=== PATIENT | female | born 1980 | race Caucasian/White ===

== ENCOUNTER 2020-05-11 14:27 | Outpatient (REF) | payer OTHER, SELFPAY ==
[2020-05-12 17:38] LABS: C. trachomatis RNA TMA NOT DETECTED (NOT DETECTED); N. gonorrhoeae RNA TMA NOT DETECTED (NOT DETECTED)
[2020-05-14 05:57] LABS: HPV mRNA E6/E7 rflx Not Detected (Not Detected)
== END 2020-05-11 14:28 | disposition home or self-care (01) ==
LOC: HO.LAB 14:27
PROVIDERS: PCP Internal Medicine; Visit Provider Advanced Practice Midwife
DX: Z01.419 Encounter for gynecological examination (general) (routine) without abnormal findings (principal); Z20.2 Contact with and (suspected) exposure to infections with a predominantly sexual mode of transmission
CPT/HCPCS: 36415; 87491; 87591; 87624; 88142

== ENCOUNTER 2020-07-11 12:59 | Outpatient (REF) | payer OTHER, SELFPAY ==
[2020-07-12 08:40] LABS: BV Int Neg Control Negative (Negative); BV Int Pos Control Positive (Positive)
== END 2020-07-11 13:00 | disposition home or self-care (01) ==
LOC: HO.LAB 12:59
PROVIDERS: PCP Internal Medicine; Visit Provider Advanced Practice Midwife
DX: Z30.433 Encounter for removal and reinsertion of intrauterine contraceptive device (principal); N89.8 Other specified noninflammatory disorders of vagina
CPT/HCPCS: 58300; 58301; 81025; 87480; 87510; 87660

== ENCOUNTER → 2020-08-26 07:52 | Outpatient (BNVA) | payer OTHER, SELFPAY | PROVIDERS: PCP Internal Medicine; Visit Provider Advanced Practice Midwife | DX: Z30.431 Encounter for routine checking of intrauterine contraceptive device (principal) | CPT/HCPCS: 99212 ==

== ENCOUNTER 2021-04-13 10:27 | Outpatient (REF) | payer OTHER, SELFPAY | END 2021-04-13 10:28 | disposition home or self-care (01) | LOC: HO.WFDLDS 10:27 | PROVIDERS: Visit Provider Internal Medicine | DX: Z20.822 Contact with and (suspected) exposure to COVID-19 (principal) | CPT/HCPCS: C9803; U0003; U0005 ==

== ENCOUNTER 2022-06-08 07:11 | Outpatient (REF) | payer OTHER, SELFPAY ==
--- NOTE | ~2022-06-08 | MR_ITS ---
EXAMINATION: BRAIN MRI WITHOUT CONTRAST CLINICAL INFORMATION: Demyelinating disease. COMPARISON: No relevant prior imaging. TECHNIQUE: Multiplanar MR imaging the brain was performed without contrast. FINDINGS: There is no intracranial mass effect or midline shift. No abnormal extra-axial collection. Lateral and third ventricles are normal. No hydrocephalus. Midline structures including the cervicomedullary junction are normal. No acute bone marrow signal changes. No abnormal supratentorial or infratentorial white matter disease. There is no acute territorial infarct. No pathological magnetic susceptibility artifact. Intracranial vascular flow voids are maintained. There is no mastoid middle ear effusion. [id number] paranasal sinus disease primarily right frontal sinus and the anterior ethmoid air cells. MR/MR head/brain wo con IMPRESSION: Paranasal sinus disease with near total opacification of the right frontal sinus and moderate disease within the anterior ethmoid air cells. Otherwise normal brain MRI. No evidence of demyelinating disease.
== END 2022-06-08 07:12 | disposition home or self-care (01) ==
LOC: HO.MRI 07:11
PROVIDERS: Visit Provider Psychiatry & Neurology Neurology
DX: G37.9 Demyelinating disease of central nervous system, unspecified (principal)
CPT/HCPCS: 70551

== ENCOUNTER 2022-07-17 15:54 | Outpatient (REF) | payer OTHER, SELFPAY ==
[2022-07-17 18:16] LABS: Erythrocyte Sedimentation Rate 18 MM/HR (0-20)
[2022-07-18 13:57] LABS: Lyme Abs Screen <0.90 index
[2022-07-20 15:14] LABS: Anti Nuclear Antibody Screen NEGATIVE (NEGATIVE)
== END 2022-07-17 15:55 | disposition home or self-care (01) ==
LOC: HO.LAB 15:54
PROVIDERS: Visit Provider Psychiatry & Neurology Neurology
DX: M54.16 Radiculopathy, lumbar region (principal)
CPT/HCPCS: 36415; 85652; 86038; 86039; 86617; 86618

== ENCOUNTER 2023-05-09 16:00 | Outpatient (RCR) | payer OTHER, SELFPAY | END 2023-08-12 07:50 | disposition home or self-care (01) | LOC: HO.PT 16:00 | PROVIDERS: Visit Provider Registered Nurse | DX: M54.16 Radiculopathy, lumbar region (principal) | CPT/HCPCS: 97110; 97112; 97140; 97161 ==

== ENCOUNTER 2024-04-28 08:06 | Outpatient (AMB) | payer OTHER, SELFPAY ==
--- NOTE | 2024-04-28 08:08 | MHC.OFFWIV ---
Intake Vital Signs 04/28/24 08:12 Height 5 ft 7 in Weight 142 lb BMI 22.2 BP 132/74 Blood Pressure Location Lt brachial Position Sitting Respiration 13 Pulse 82 Pulse Source Pulse Oximeter Pulse Oximetry (%) 98 Oxygen Delivery Method Simple Mask Intake Visit Reasons: Persistent cough Intake Note: Patient complaining of persistent cough and coughing up yellow phlegm x 3 weeks. Allergies budesonide [From Pulmicort] Allergy (Mild, Verified 04/28/24 08:21) RASH Medication List - Last Reconciled 04/28/24 by Josefina Guzmán, [facility]- albuterol sulfate 90 mcg/actuation 2 puffs inhalation Q6H PRN cetirizine (Zyrtec) 10 mg PO DAILY PRN citalopram 20 mg PO DAILY fluticasone propionate 50 mcg/actuation 1 spray intranasal BID gabapentin 300 mg PO DAILY levonorgestrel vaginal ONCE sumatriptan succinate 50 mg PO Do you need a note to return to daycare/school/sports/work: No HPI HPI Comments History of Present Illness Details The patient is a 43-year-old female presenting with a persistent cough. She reported that the cough started around [place] time, at which point she experienced post-nasal drip and a sore throat, but these symptoms initially began to improve. However, in the past week, the cough has exacerbated, causing significant disruption to sleep and resulting in exhaustion. She described the cough as productive, with expectoration of white foam and yellowish mucus in the morning. The patient has a history of asthma, which is typically well-controlled with albuterol but has not provided relief for this current episode. Additionally, she recounts a history of frequent bronchitis and describes past segura characterized by persistent coughing, a condition referred to by her grandmother as being a hacky kid . Her nasal symptoms include feelings of scabbing and occasional bleeding, particularly exacerbated in the mornings, potentially linked to nasal congestion and mucus drainage. She denies any current dental pain, facial tenderness, or sore throat, attributing those to earlier phases of illness. Exam Awake alert NAD Sclera and conjunctiva clear bilat Nares with thick mucoid dc bilat, turbinates erythematous and edematous, no sinus tenderness with palpation bilat TM intact with congestion bilat MMM, pharynx + PND RRR LS CTAB, dry hacking cough noted during exam w/o distress. Plan - Initiate treatment with prednisone, dosed at two tablets daily with food for 5 days, to manage inflammation. - Prescribe Augmentin amoxicillin/clavulanate), one tablet twice daily with food for 7 days, for the likely bacterial sinusitis. - Continue the use of albuterol inhaler as needed to manage asthma symptoms. - Discussed the potential effects of medications on asthma management and advised monitoring of asthma control. - Encourage hydration and rest to assist with recovery from sinusitis and cough. - Advised ksvc-lqi-gwkcijp options for mucus symptoms if necessary, ensuring compatibility with current prescriptions. -RTO edu provided. Patient was informed and verbally consented to the use of an ambient scribe for clinic note documentation during this visit. [facility] Surgical History H/O breast biopsy Family History Paternal Aunt History of breast cancer Social History Alcohol intake: never Female Reproductive History Menstrual Age of Menarche: 18 Physical Exam Vital Signs: Last Vital Signs Pulse 82 04/28/24 08:12 Resp 13 04/28/24 08:12 BP 132/74 04/28/24 08:12 Pulse Ox 98 04/28/24 08:12 Oxygen Delivery Method Simple Mask 04/28/24 08:12 BMI result Body Mass Index 22.2 Assessment & Plan Assessment & Plan (1) Acute bacterial sinusitis: Code(s): J01.90 - Acute sinusitis, unspecified; B96.89 - Other specified bacterial agents as the cause of diseases classified elsewhere (2) Mild intermittent asthma: Code(s): J45.20 - Mild intermittent asthma, uncomplicated Plan . Medications: New prednisone 40 mg (2 x 20 mg) PO DAILY 10 tabs 0RF amoxicillin-pot clavulanate 875-125 mg 1 tab PO BID 7 days 14 tabs 0RF Discontinued metronidazole (Flagyl) Discontinued Reason: No Longer Medically Relevant 500 mg PO BID 7 days 14 tabs 0RF Patient Instructions: What Is It? Sinuses are air-filled spaces behind the bones of the upper face: between the eyes and behind the forehead, nose and cheeks. The lining of the sinuses are made up of cells with tiny hairs on their surfaces called cilia. Other cells in the lining produce mucus. The mucus traps germs and pollutants and the cilia push the mucus out through narrow sinus openings into the nose. When the sinuses become inflamed or infected, the mucus thickens and clogs the openings to one or more sinuses. Fluid builds up inside the sinuses causing increased pressure. Also bacteria can become trapped, multiply and infect the lining. This is sinusitis. Prevention There are some measures you can take to decrease your risk of developing sinusitis. If you smoke cigarettes, you should quit. The smoke can irritate nasal passageways and increase the likelihood of infection. Nasal allergies can trigger sinus infections, too. By identifying the allergen (the substance causing the allergic reaction) and avoiding it, you can help prevent sinusitis. If you have congestion from a cold or allergies, the following may help to reduce the risk of developing sinusitis: Drink lots of water. This thins nasal secretions and keeps mucous membranes moist. Use steam to soothe nasal passages. Breathe deeply while standing in a hot shower, or inhale the vapor from a basin filled with hot water while holding a towel over your head. Avoid blowing your nose with great force, which can push bacteria into the sinuses. Some doctors advise periodic home nasal washings to clear secretions. This may help prevent, and also treat, sinus infections. Treatment Many sinus infections improve without treatment. However, several medications may speed recovery and reduce the chance that an infection will become chronic. Decongestants - Congestion often triggers sinus infections, and decongestants can open the sinuses and allow them to drain. Several are available: Pseudoephedrine (Sudafed) is available without prescription, alone or in combination with other medications in multi-symptom cold and sinus remedies. Pseudoephedrine can cause insomnia, racing pulse and jitteriness. Do not use if you have high blood pressure or a heart condition. Phenylephrine (such as Sudafed PE) is an alternative looj-xqw-ojcibft oral decongestant. If you take products containing oral phenylephrine, check with the pharmacist to be certain there is no interaction with other medications you take. Oxymetazoline (Pete Rendon and others) and phenylephrine (Saurav-Synephrine and others) are found in nasal sprays. They are effective and may be less likely to cause the side effects seen with pseudoephedrine. However, using a nasal decongestant for more than three days can cause worse symptoms when you stop the medication. This is called the rebound effect. Antihistamines - These medications help to relieve the symptoms of nasal allergies that lead to inflammation and infections. However, some doctors advise against using antihistamines during a sinus infection because they can cause excessive drying and slow the drainage process. Ihdf-zdy-deosirb antihistamines include diphenhydramine (Benadryl and others), chlorpheniramine (Chlor-Trimeton and others) and loratadine (Claritin). Fexofenadine (Cici) and cetrizine (Zyrtec) are available by prescription. Nasal steroids - Anti-inflammatory sprays such as mometasone (Nasonex) and fluticasone (Flonase), both available by prescription, reduce swelling of nasal membranes. Like antihistamines, nasal steroids can be most useful for those who have nasal allergies. Nasal steroids tend to produce less drying than antihistamines. Unlike nasal decongestants, nasal steroids can be used for prolonged periods. Saline nasal sprays - These salt-water sprays are safe to use and can provide some relief by adding moisture to the nasal passages, thinning mucus secretions and helping to flush out any bacteria that may be present. Pain relievers - Acetaminophen (Tylenol), ibuprofen (Advil, Motrin and others) or naproxen (Aleve) can be taken sinus pain. Antibiotics - Your doctor may prescribe an antibiotic if he or she suspects that a bacterial infection is causing your sinusitis. If you start taking an antibiotic, complete the entire course so that the infection is completely killed off. Not all cases of sinusitis require antibiotic treatment: Talk with your doctor about whether an antibiotic is right for you. Keep in mind that antibiotics can cause side effects, such as allergic reactions, rash and diarrhea. In addition, overusing antibiotics eventually leads to the spread of bacteria that no longer can be killed by the most commonly prescribed antibiotics. When To Call A Professional Contact a doctor if you experience facial pain along with a headache and fever, cold symptoms that last longer than seven to 10 days, or persistent green discharge from the nose. If your symptoms don't improve within a week of beginning treatment, call your doctor. Call sooner if symptoms are getting worse. If you have repeated bouts of acute sinusitis, you may have allergies or another treatable cause of sinus congestion. Ask your doctor for advice. Coding Level of Care Code Est Pt Level 3 (90815) Diagnoses Acute bacterial sinusitis J01.90; B96.89 Mild intermittent asthma J45.20
[2024-04-28 08:12] VITALS: BP 132/74; PULSE 82; RESP 13; O2SAT 98; BMI 22.2
== END 2024-04-28 08:28 | disposition home or self-care (01) ==
PROVIDERS: Visit Provider Nurse Practitioner Family
DX: J01.90 Acute sinusitis, unspecified (principal); B96.89 Other specified bacterial agents as the cause of diseases classified elsewhere; J45.20 Mild intermittent asthma, uncomplicated

== ENCOUNTER → 2024-04-28 08:06 | Outpatient (BNVA) | payer OTHER, SELFPAY | DX: J01.90 Acute sinusitis, unspecified (principal); B96.89 Other specified bacterial agents as the cause of diseases classified elsewhere; J45.20 Mild intermittent asthma, uncomplicated | CPT/HCPCS: 99212 ==

== ENCOUNTER 2025-01-14 13:50 | Outpatient (REF) | payer OTHER, SELFPAY ==
[2025-01-14 15:12] LABS: Hematocrit 39.3 % (37.0-47.0); Hemoglobin 13.0 g/dl (12.0-16.0); Mean Corpuscular HGB Conc 33.1 g/dl (31.0-35.0); Mean Corpuscular Hemoglobin 29.6 pg (27.0-33.0); Mean Corpuscular Volume 89.5 fL (80.0-98.0); NRBC Abs Auto 0.000 X10*3/uL (0.0-0.012); NRBC Pct Auto 0.0 /100WBC (0.0-0.2); Platelet Count 188 X10*3/uL (160-400); Red Blood Count 4.39 X10*6/uL (4.20-5.50); White Blood Count 5.6 X10*3/uL (4.8-10.8)
[2025-01-15 09:07] LABS: CT PCR NOT DETECTED (Not Detect.); NG PCR NOT DETECTED (Not Detect.)
== END 2025-01-14 13:51 | disposition home or self-care (01) ==
LOC: HO.LAB 13:50
PROVIDERS: PCP Internal Medicine; Visit Provider Obstetrics & Gynecology
DX: N93.9 Abnormal uterine and vaginal bleeding, unspecified (principal)
CPT/HCPCS: 36415; 81025; 84443; 84702; 85027; 87491; 87591; 99202

== ENCOUNTER 2025-01-14 13:50 | Outpatient (AMB) | payer OTHER, SELFPAY ==
[2025-01-14 14:03] VITALS: BMI 22.2
--- NOTE | 2025-01-14 14:03 | MHC.OFFVIS ---
Vital Signs 01/14/25 14:03 Height 5 ft 7 in Weight 142 lb BMI 22.2 Intake Visit Reasons: aub Intake Note: patient here for aub for 2 months spotting every 2 weeks. Rail Filler Required: No Information Interpreted: non-clinical & clinical Clinical Resource Coordinator: Clinical Resource Coordinator Present (lavon) Accompanied by: Self / Same As Patient Allergies budesonide (From Pulmicort) Allergy (Mild, Verified 01/14/25 14:15) RASH Medication List - Last Reconciled 01/14/25 by Wen Hinson LPN albuterol sulfate 90 mcg/actuation 2 puffs inhalation Q6H PRN amoxicillin-pot clavulanate 875-125 mg 1 tab PO BID 7 days cetirizine (Zyrtec) 10 mg PO DAILY PRN citalopram 20 mg PO DAILY fluticasone propionate 50 mcg/actuation 1 spray intranasal BID gabapentin 300 mg PO DAILY levonorgestrel vaginal ONCE prednisone 40 mg (2 x 20 mg) PO DAILY sumatriptan succinate 50 mg PO HPI Comments Details: Presenting complaining of intermenstrual spotting over the last 2 months. The patient has had Mirena IUD since 07/03 has been having regular light menstrual cycles except last 2 months Last Co testing in 05/05 was negative Last mammogram at [place] was BI-RADS 3, the patient has been on Q six-months mammogram for the last 18 month with stable findings, according to the patient, no records available [facility] Surgical History H/O breast biopsy Family History Paternal Aunt History of breast cancer Social History Alcohol intake: never Female Reproductive History Menstrual Age of Menarche: 18 Review of Systems Const All systems reviewed & are unremarkable except as noted in HPI and below Card Reports as per HPI Resp Reports as per HPI GI Reports as per HPI and Reports no additional complaints Reports as per HPI Physical Exam Vital Signs: BMI result Body Mass Index 22.2 Const General: cooperative, healthy appearing and comfortable Chest Chest palpation & inspection: normal inspection of the chest and normal palpation of entire chest wall Breast/axilla inspection: normal inspection of the breasts and normal inspection of the axillae Breast/axilla palpation: normal palpation of the breasts, normal palpation of the axillae and no axillary lymphadenopathy Resp Effort & Inspection: normal respiratory effort Auscultation: clear to auscultation bilaterally Percussion: percussion normal Cardio Palpation: normal PMI Rate: regular rate Rhythm: regular rhythm Heart sounds: no murmurs and no rubs Peripheral pulses: Peripheral pulses 2+ throughout GI Inspection: Yes normal to inspection Palpation (GI): Soft to palpation, nontender, no guarding, not rigid and No hepatosplenomegaly present Percussion: Yes normal to percussion Auscultation: normal bowel sounds Rectal Exam - Female: deferred General: Yes bladder normal to palpation External Female Exam: No lesion Speculum Exam - Vagina: normal appearance of the vagina, normal palpation, normal vaginal discharge and not erythematous Speculum Exam - Cervix: normal appearance of the cervix and normal palpation Bimanual exam- vagina & uterus: normal bimanual exam, normal palpation, uterine size normal, bladder normal to palpation, consistency normal and normal palpation Bimanual Exam- Adnexa, other: normal adnexae, no masses and no tenderness Results AMB Test Urine AMB Test Urine Negative Last Edit by Wen Hinson LPN on 01/14/25 14:17 Assessment & Plan Assessment & Plan (1) Abnormal uterine bleeding (AUB): Comment: Mirena IUD BI-RADS 3 mammogram at [place] no records available Code(s): N93.9 - Abnormal uterine and vaginal bleeding, unspecified Category: Medical Plan: Co testing done, GC and chlamydia taken CBC, TSH, HCG, and pelvic ultrasound ordered. Discussed with the patient increase in the risk of breast cancer risk with Mirena IUD long-term use, recommended switching to ParaGard IUD. The patient will think about it and get back to us next visit . Discussed with the patient the different causes of abnormal bleeding including thyroid disorders, uterine and ovarian pathology, endometrial hyperplasia, carcinoma and other potential causes. Discussed with the patient the work up including CBC (to r/o anemia), TSH, pelvic Ultrasound, endometrial biopsy to r/o endometrial pathology. All questions answered and the patient verbalized understanding. Instructed the patient to schedule an appointment for an endometrial biopsy in 2 weeks. Orders: Orders TSH reflex Free T4 Today N93.9 - Abnormal uterine and vaginal bleeding, unspecified US pelvic and transvaginal Today N93.9 - Abnormal uterine and vaginal bleeding, unspecified AMB HCG Urine Test Today N93.9 - Abnormal uterine and vaginal bleeding, unspecified HCG Quantitative Today N93.9 - Abnormal uterine and vaginal bleeding, unspecified Complete Blood Count no Diff Today N93.9 - Abnormal uterine and vaginal bleeding, unspecified Coding Level of Care Code New Pt Level 3 (35896) Diagnoses Abnormal uterine bleeding (AUB) N93.9
--- OUTSIDE RECORDS SUMMARY | 2025-01-14 15:28 | XMS_ITS | Clinical Summary ---
Author Organization [facility] [address] [place] [address] [place] [phone] Phone Care Team Providers Care Transformer Coil Winder Name Role Phone Radha Kebede MD Primary Care Provider [phone] Allergies Active Allergy Reactions Criticality Noted Date Comments Budesonide 01/29/2007 Medications citalopram (CeleXA) 10 mg tablet Take 1 tablet (10 mg total) by mouth 1 (one) time each day. 4 Active gabapentin (NEURONTIN) 300 mg capsule Take 1 capsule (300 mg total) by mouth 1 (one) time each day. 4 Active ferrous sulfate 325 mg (65 mg elemental iron) tablet Take 1 tablet (325 mg total) by mouth 1 (one) time each day. 4 Active MAGNESIUM CITRATE ORAL Take by mouth. Ac tive fluticasone propionate (FLONASE) 50 mcg/actuation nasal spray Apply 2 sprays into each nostril once daily 9 Active cetirizine (ZyrTEC) 10 mg tablet Take 1 tablet (10 mg total) by mouth 1 (one) time each day. 9 Active levonorgestreL (MIRENA) 21 mcg/24hr (up to 8 yrs) 52 mg IUD 1 Each by Intrauterine route once. Active multivit,calc,m ins/iron/folic (WOMEN'S ONE DAILY ORAL) 1 Tab daily. Activ e SUMAtriptan (IMITREX) 50 mg tablet TAKE ONE TABLET BY MOUTH AT ONSET OF MIGRAINE. IF SYMPTOMS PERSIST, A SECOND DOSE MAY BE TAKEN IN 2 HOURS. DO NOT EXCEED 2 DOSES IN A 24 HOUR PERIOD, UNLESS OTHERWISE INSTRUCTED BY YOUR PHYSICIAN 4 Active montelukast (SINGULAIR) 10 mg tablet Take 1 tablet (10 mg total) by mouth at bedtime. 90 each 1 5 Active albuterol HFA (PROAIR HFA ; PROVENTIL HFA ; VENTOLIN HFA) 90 mcg/actuation inhaler Inhale 2 puffs by mouth every 6 (six) hours if needed for wheezing or shortness of breath. 1 each 11 5 08/12/19 26 Active inhalational spacing device (Aerochamber MV) inhaler Use as instructed 1 each 5 08/12/19 26 Active fluticasone propion-salmete roL (Advair HFA) 230-21 mcg/actuation inhaler Inhale 2 puffs by mouth 2 (two) times a day. Rinse mouth with water after use to reduce aftertaste and incidence of candidiasis. Do not swallow. 1 each 12 5 08/22/19 26 Active Active Problems Problem Noted Date Diagnosed Date Axillary mass, right 03/31/2024 Accessory breast tissue of axilla 02/14/2024 Dense breasts 02/14/2024 Neuropathy 09/06/2023 Asthma 12/17/2006 Encounters Date Type Department Care Team Description 11/13/2024 2:30 PM EDT Office Visit Pulmonology [address] [phone] Virginie Brown MD Moderate persistent asthma, unspecified whether complicated (Primary Dx) 10/20/2024 1:15 PM EDT Procedure visit Pulmonology [address] [phone] Moderate persistent asthmatic bronchitis with acute exacerbation 10/19/2024 8:16 AM EDT - 10/19/2024 11:59 PM EDT Hospital Encounter Radiology Department - [address] [phone] Abnormal mammogram of right breast Discharge Disposition: Home or Self Care from Last 3 Months Immunizations Immunization Administration Dates Next Due Influenza Quadravalent, MDCK , 0.5ml, preservative free (Flucelvax) 6mo and older 05/22/2018 Influenza Quadravalent, MDCK , 0.5ml, with preservative (Flucelvax) 6mo and older 01/14/2017 Influenza trivalent, 0.5mL, preservative free (Fluarix; FluLaval; Fluzone) ages 6mo and older (Afluria) 3 years and older 01/25/2016 PPD Test 12/16/2007 Pneumococcal polysaccharide 23 valent (Pneumovax 23) 2yo and older 01/25/2016 Tdap Tetanus diptheria acell ular pertussis (Boostrix; Adacel) 7yo and older 05/22/2018,12/16/2007 Surgical History Surgery Date Site/Laterality Comments BREAST LUMPECTOMY 2014 Left PROCEDURE: HISTORICAL BREAST LUMPECTOMY; COMMENT: benign lumpectomy BX BREAST W DEVICE 1ST LESIO N ULTRASOUND GUIDE Right benign etiology Medical History Medical History Date Comments Asthma, mild intermittent, well-controlled DX:Asthma, mild intermittent , well-controlled History of ovarian cyst DX:Histo ry of ovarian cyst Family History Medical History Relation Name Comments Breast cancer Aunt maternal age 5 0s Other: Heart Disease Father unknown Other: pancreatic cancer Maternal Grandfather Other: Other Maternal Grandmother Depression Mother suicide attempt s Mental illness Mother Bipolar Disor kathryn Breast cancer Other Paternal great aunts No Known Problems Paternal Grandfather d ied in sleep Other: brain tumor Paternal Grandmother Relation Name Status Comments Aunt Father Alive ?heart dz Maternal Grandfather (Age 82) Maternal Grandmother (Age 81) Mother Alive bipolar d/o Other Paternal Grandfather Paternal Grandmother Social History Tobacco Use Types Packs/Day Years Used Date Smoking Tobacco: Never Smokeless Tobacco: Never Tobacco Cessation:Counseling Given: Not Answered Alcohol Use Standard Drinks/Week Comments Yes 0 (1 standard drink = 0.6 oz pur e alcohol) Housing Instability Answer Date Recorde d Are you worried that in the next 2 months you may not have stable housing? No 07/21/2024 Food Access & Nutrition Answer Date Rec orded Do you have access to a vari ety of food including fruits and vegetables? Yes 07/21/2024 Health Literacy Answer Date Recorded How often do you need to hav e someone help you when you read instructions, pamphlets, or other written material from your doctor or pharmacy? Never 07/21/2024 Caregiver: How often do you need to have someone help you when you read instructions, pamphlets, or other written material from your doctor or pharmacy? Not on file 07/21/2024 Financial Risk Answer Date Recorded How hard is it for you to pa y for the very basics like food, housing, medical care, and air conditioning / heating? Somewhat hard 07/21/2024 Transportation Answer Date Recorded Has the lack of transportati on kept you from meetings, work, or from getting things needed for daily living? No Has the lack of transportati on kept you from medical appointments or from getting medications? No 07/21/2024 Social Isolation Answer Date Recorded How often do you feel lonely or isolated from th ose around you? Never 07/21/2024 Food Risk Answer Date Recorded Within the past 12 months we worried whether our food would run out before we got money to buy more. Never true 07/21/2024 Within the past 12 months th e food we bought just didn't last and we didn't have money to get more. Never true 07/21/2024 Dependent Care Answer Date Recorded Do you need help finding or paying for care for your loved ones. For example, child care cook or elderly care for an older adult? No 07/21/2024 Education Answer Date Recorded Do you think completing more education or training, like finishing a GED, going to college, or learning a trade, would be helpful for you? No 07/21/2024 Employment and Income Answer Date Recor ded During the last four weeks, have you been actively looking for work? No 07/21/2024 Living Situation Answer Date Recorded What is your living situation? Unrecognized valu e 07/21/2024 Comments No Sex and Gender Information Value Date Recorded Sex Assigned at Not on file Legal Sex Female 12:40 PM EST Gender Identity Not on file Sexual Orientation Not on file Obstetrics History Para Term AB IAB SAB Ectopic Multiple Livin g Live Births 2 2 2 2 Date Outcome GA Total Labor Labor/2nd/3rd Weight Sex Type Anes PTL Betina A1 A5 Name Clin Term Term Last Filed Vital Signs Vital Sign Reading Time Taken Comments Blood Pressure 119/79 11/13/2024 2:39 PM EDT Pulse 97 11/13/2024 2:39 PM EDT Temperature 36.3 C (97.3 F) 11/13/2024 2:39 PM EDT Respiratory Rate 20 11/13/2024 2:39 PM EDT Oxygen Saturation 100% 11/13/2024 2:39 PM EDT Inhaled Oxygen Concentration - - Weight 66.2 kg (146 lb) 11/13/2024 2:39 PM EDT Height 170.2 cm (5' 7 ) 11/13/2024 2:39 PM EDT Body Mass Index 22.87 11/13/2024 2:39 PM EDT Plan of Treatment Upcoming Encounters Date Type Department Care Team (Late st Contact Info) Description 02/02/2025 4:00 PM EDT Appointment Radiology Department [address] [phone] 05/17/2025 4:15 PM EST Office Visit Pulmonology - [address] [phone] Virginie Brown MD [address] [place] [phone] 09/21/2025 4:00 PM EDT Office Visit Adult Medicine [address] [phone] Radha Kebede MD [address] [place] [address] Health Maintenance Due Date Last Done Comments Hepatitis B Vaccines (1 of 3 - 19+ 3-dose series) 2000 Cervical Cancer Screening: P ap Smear 2002 HPV Vaccines (1 - 3-dose SCD M series) 2008 Pneumococcal Vaccine: Pediatrics (0 to 5 Years) and At-Risk Patients (6 to 49 Years) (2 of 2 - PCV) 01/24/2017 01/25/2016 Hepatitis C Screening 03/13/2022 COVID-19 Vaccine (2023-2 5 season) 2024 Influenza Vaccine (#1) 2024 9, 01/14/2017, 01/25/2016 Social Influencers of Health Screening 07/21/2025 07/21/2024 Breast Cancer Screening 10/19/2025 10/20/19 25, 02/13/2024, 02/13/2024 DTaP,Tdap,and Td Vaccines (3 - Td or Tdap) 05/22/2028 05/22/2018, 12/16/2007 RSV Immunization Adult Patients (1 - 1-dose 75+ series) 2056 HIV Screening Completed 01/16/2007 Depression Screening Completed 09/16/2024, 02/10/2024 HIB Vaccines Aged Out No longer eligi ble based on patient's age to complete this topic Hepatitis A Vaccines Aged Out No long er eligible based on patient's age to complete this topic IPV Vaccines Aged Out No longer eligi ble based on patient's age to complete this topic MMR Vaccines Aged Out No longer eligi ble based on patient's age to complete this topic Meningococcal ACWY Vaccine Aged Out N o longer eligible based on patient's age to complete this topic Meningococcal B Vaccine Aged Out No l onger eligible based on patient's age to complete this topic RSV Immunization Patients Under 20 months Aged Out No longer eligible b ased on patient's age to complete this topic Varicella Vaccines Aged Out No longer eligible based on patient's age to complete this topic Procedures Procedure Name Priority Date/Time Associated Diagnosis Comments PULMONARY FUNCTION TESTING Routine 10/20/2024 1:38 PM EDT Moderate persistent asthmatic bronchitis with acute exacerbation MG MAMMO DIGITAL DIAGNOSTIC W [place] RIGHT Routine 10/19/2024 8:35 AM EDT Abnormal mammogram of right breast DEPRESSION SCREENING Routine 02/10/2024 HIV SCREENING Routine 01/16/2007 from Last 3 Months or Most Recently Relevant to Health Maintenance Results * Pulmonary function testing: Carbon Monoxide Diffusing Capacity, Nitrogen Wash Out, Spirometry with Bronchodilator, Vital Capacity Test (10/20/2024 1:38 PM EDT) Impressions Juan J Holt MD - 10/20/2024 1:38 PM EDT Pulmonary function test interpretation. Spirometry reveals FEV1 of 3.69 which is an 14% of the predicted value, FVC is 3.77 which is 94% of the predicted value, FEV1 to FVC ratio is 120% of the predicted value, there is no bronchodilator response. Flow a loop is consistent with normal pattern. Static lung volumes are elevated [id number]. Diffusion lung capacity is within normal limit however moderately reduced after correction for alveolar volume. This study is consistent with normal spirometry, with significant air trapping and moderate reduction in diffusion lung capacity for which clinical correlation is advised. Virginie Brown MD PFT ORDERABLES Final Result * MG Mammo Digital Diagnostic w [place] Right (10/19/2024 8:35 AM EDT) Anatomical Region Laterality Modality Breast Right Mammography 10/19/2024 8:43 AM EDT Impressions 10/19/2024 8:49 AM EDT 1. Probably benign MLO axillary tail asymmetry is morphologically stable 2. Heterogeneously dense BI-RADS CATEGORY: 3 - PROBABLY BENIGN RECOMMENDATION: Short Interval Follow-up is recommended for the right breast in 6 months. Right breast MLO spot compression in 6 months -------- FINAL REPORT -------- Dictated By: Sara Carbajal Dictated Date: 10/19/2024 08:43 ET Assigned Physician: Sara Carbajal Reviewed and Electronically Signed By: Sara Carbajal Signed Date: 10/19/2024 08:49 ET Workstation ID: [id number] Transcribed By: Self Edit Transcribed Date: 10/19/2024 08:43 ET Narrative 10/19/2024 8:49 AM EDT RIGHT DIGITAL 3D DIAGNOSTIC MAMMOGRAPHY HISTORY: Follow-up for right breast MLO axillary tail asymmetry COMPARISON: Multiple mammograms dating back to 10/25/2014 Technique: Full field MLO, MLO spot compression 3-D FINDINGS: BREAST DENSITY: C - The breasts are heterogeneously dense which may obscure small masses. Right breast MLO axillary tail asymmetry is probably benign and morphologically stable Procedure Note Sara Carbajal MD - 10/19/2024 RIGHT DIGITAL 3D DIAGNOSTIC MAMMOGRAPHY HISTORY: Follow-up for right breast MLO axillary tail asymmetry COMPARISON: Multiple mammograms dating back to 10/25/2014 Technique: Full field MLO, MLO spot compression 3-D FINDINGS: BREAST DENSITY: C - The breasts are heterogeneously dense which mayobscure small masses. Right breast MLO axillary tail asymmetry is probably benign andmorphologically stable IMPRESSION: 1. Probably benign MLO axillary tail asymmetry is morphologicallystable 2. Heterogeneously dense BI-RADS CATEGORY: 3 - PROBABLY BENIGN RECOMMENDATION: Short Interval Follow-up is recommended for the right breast in 6 months.Right breast MLO spot compression in 6 months -------- FINAL REPORT -------- Dictated By: Sara Carbajal Dictated Date: 10/19/2024 08:43 ET Assigned Physician: Sara Carbajal Reviewed and Electronically Signed By: Sara Carbajal Signed Date: 10/19/2024 08:49 ET Workstation ID: [id number] Transcribed By: Self Edit Transcribed Date: 10/19/2024 08:43 ET Adrianne CRUZ IMG BI PROCEDURES Final Result * Depression Screening (02/10/2024) Depression Screening abstracted Historical Provider HEALTH MAINTENANCE Final Result * HIV Screening (01/16/2007) HIV Screening abstracted Historical Provider HEALTH MAINTENANCE Final Result from Last 3 Months or Most Recently Relevant to Health Maintenance Insurance [facility] Care Teams Transformer Coil Winder Relationship Specialty Start Date End Date Radha Kebede MD [address] [place] [phone] PCP - General Internal Medicine 07/22/24
--- OUTSIDE RECORDS SUMMARY | 2025-01-14 15:28 | XMS_ITS | Clinical Summary ---
Author Organization [facility] Address [address] [place] [address] Care Team Providers Care Metal Fabricating Supervisor Name Role Phone Kayley Webster MD Primary Care Provider Allergies No known active allergies Medications Medication Sig Dispensed Refills Start Date End Date Status fluticasone (FLONASE) 50 MCG/ACT nasal spray spray/apply 1 spray in each nostril daily. 0 Active cetirizine (ZyrTEC) 10 MG tablet Take 10 mg by mouth daily. 0 Active Active Problems No known active problems Family History Medical History Relation Name Comments Cancer Maternal Aunt Cancer Mother Relation Name Status Comments Maternal Aunt Alive Mother Alive Social History Tobacco Use Types Packs/Day Years Used Date Smoking Tobacco: Never Smokeless Tobacco: Never Alcohol Use Standard Drinks/Week Comments Yes 0 (1 standard drink = 0.6 oz pur e alcohol) social Sex and Gender Information Value Date Recorded Sex Assigned at Not on file Gender Identity Not on file Sexual Orientation Not on file Last Filed Vital Signs Vital Sign Reading Time Taken Comments Blood Pressure 113/66 02/22/2020 11:08 AM EST Pulse 78 02/22/2020 11:08 AM EST Temperature 36.9 C (98.4 F) 02/22/2020 11:08 AM EST Respiratory Rate - - Oxygen Saturation - - Inhaled Oxygen Concentration - - Weight 67.3 kg (148 lb 6.4 oz) 02/22/2020 11:08 AM EST Height 170.2 cm (5' 7 ) 02/22/2020 11:08 AM EST Body Mass Index 23.24 02/22/2020 11:08 AM EST Plan of Treatment Health Maintenance Due Date Last Done Comments Hepatitis B Vaccines (1 of 3 - 3-dose series) 1981 Hepatitis C Screening 1981 COVID-19 Vaccine (#1) 03/14/1982 Depression Screening 1993 Preventative Health Evaluation 09/13/1999 DTap / Tdap / Td (1 - Tdap) 2000 Cervical Cancer Screening (P ap Smear) 2002 Influenza Vaccine (#1) 2024 Pneumococcal Vaccine Aged Out No long er eligible based on patient's age to complete this topic RSV Ped < 20 months Aged Out No longe r eligible based on patient's age to complete this topic Care Teams Metal Fabricating Supervisor Relationship Specialty Start Date End Date Kayley Webster MD PCP - General Internal Medicine 02/05/20
--- OUTSIDE RECORDS SUMMARY | 2025-01-14 15:28 | XMS_ITS ---
Author Name [facility] Organization Unknown Care Team Organization Name Specialty Phone Email Start Date End Da te [facility] GARIMA LEWIS Primary Care 02/20/2022 12/02/19 24
== END 2025-01-14 14:26 | disposition home or self-care (01) ==
LOC: HO.HWS 13:50
PROVIDERS: PCP Internal Medicine; Visit Provider Obstetrics & Gynecology
DX: N93.9 Abnormal uterine and vaginal bleeding, unspecified (principal)
CPT/HCPCS: 99203

== ENCOUNTER 2025-01-14 14:16 | Outpatient (REF) | payer OTHER, SELFPAY | END 2025-01-14 14:17 | disposition home or self-care (01) | LOC: HO.LNP 14:16 | PROVIDERS: Visit Provider Obstetrics & Gynecology | DX: N93.9 Abnormal uterine and vaginal bleeding, unspecified (principal) | CPT/HCPCS: 87626; 88175 ==

== ENCOUNTER 2025-02-09 11:45 | Outpatient (AMB) | payer OTHER, SELFPAY ==
[2025-02-09 12:27] VITALS: BMI 22.2
--- NOTE | 2025-02-09 12:27 | A.OFFVIS_ITS ---
Vital Signs 02/09/25 12:27 Height 5 ft 7 in Weight 142 lb BMI 22.2 Intake Visit Reasons: emb Allergies budesonide (From Pulmicort) Allergy (Mild, Verified 02/09/25 12:29) RASH HPI Comments Details: Presenting for EMB [facility] Surgical History H/O breast biopsy Family History Paternal Aunt History of breast cancer Social History Alcohol intake: never Female Reproductive History Menstrual Age of Menarche: 18 Review of Systems Const All systems reviewed & are unremarkable except as noted in HPI and below Reports as per HPI and Reports no additional complaints GI Reports no additional complaints Reports no additional complaints Physical Exam Vital Signs: BMI result Body Mass Index 22.2 Office Procedures Endometrial Biopsy Details: The patient was counseled regarding the indication and benefits of endometrial sampling to rule out endometrial pathology including not limited to endometrial hyperplasia or endometrial cancer and others; The alternatives (Either do nothing vs. hysteroscopy D&C) & the risks were discussed with the patient including but not limited: pain, uterine perforation, bleeding, infection, possible injury to bladder, bowel, ureter, possible need for blood transfusion with all its possible risks. The patient verbalized understanding all questions answered and signed consent. Urine test done in the office was negative The patient was placed into the dorsal lithotomy position; a speculum was inserted in the vagina. Using aseptic technique for the procedure, the cervix was cleansed with Betadine. The anterior lip of the cervix was grasped with a single tooth tenaculum. The uterus was sounded to 7 cm with a 4 mm Pipelle was used. Tissues samples were obtained and placed in formalin, in a patient labeled container and sent to the pathology department. At the end of the procedure, there was minimal bleeding noted The patient tolerated the procedure well and was discharged in good condition with the following instructions: Nothing in the vagina until the bleeding stops. No sex until the bleeding stops, to call if any of the following occurs: fever (>100.4), flu-like symptoms, abdominal pain, heavy bleeding, four smelling vaginal discharge. The patient was instructed to schedule a Follow up appointment in 2 weeks to discuss pathology results of the biopsy and treatment options. This note was generated with a voice recognition program. Some errors may have been overlooked during the review of this note. Sometimes these errors may affect the content or meaning of a given sentence. [id number] Biopsy Results AMB Test Urine AMB Test Urine Negative Last Edit by JENNIFER Aguero on 02/09/25 12:35 Results Reviewed Results Reviewed: Laboratory Last Values Tst Clinic Negative 02/09/25 12:34 Assessment & Plan Assessment & Plan (1) Abnormal uterine bleeding (AUB): Comment: Mirena IUD BI-RADS 3 mammogram at [facility] no records available Code(s): N93.9 - Abnormal uterine and vaginal bleeding, unspecified Category: Medical Plan: EMB done, see procedure note Orders: Orders AMB HCG Urine Test Today N93.9 - Abnormal uterine and vaginal bleeding, unspecified AMB Endometrial Biopsy Today N93.9 - Abnormal uterine and vaginal bleeding, unspecified Coding Level of Care Code Procedure Only Diagnoses Abnormal uterine bleeding (AUB) N93.9 CPT Codes Endometrial Biopsy - CPT: 78064-[id number] Biopsy ([id number])
--- OUTSIDE RECORDS SUMMARY | 2025-02-09 15:12 | XMS_ITS | Clinical Summary ---
Author Organization [facility] Address [address] [place] [address] Care Team Providers Care Hand Reamer Name Role Phone Kayley Webster MD Primary Care Provider [phone] Allergies No known active allergies Medications Medication [...] age to complete this topic Care Teams Hand Reamer Relationship Specialty Start Date End Date Kayley Webster MD PCP - General Internal Medicine 02/05/20
--- OUTSIDE RECORDS SUMMARY | 2025-02-09 15:12 | XMS_ITS | Clinical Summary ---
Author Organization [facility] [address] [place] [address] [place] [phone] Phone Care Team Providers Care Junior Copywriter Name Role Phone Radha Kebede MD Primary Care Provider [phone] Allergies Active Allergy Reactions Criticality Noted Date Comments Budesonide 01/29/2007 Medications citalopram (CeleXA) 10 mg tablet Take 1 tablet (10 mg total) by mouth 1 (one) time each day. 08/13/19 24 Active gabapentin (NEURONTIN) 300 mg capsule Take 1 capsule (300 mg total) by mouth 1 (one) time each day. 09/06/19 24 Active ferrous sulfate 325 mg (65 mg elemental iron) tablet Take 1 tablet (325 mg total) by mouth 1 (one) time each day. 09/06/19 24 Active MAGNESIUM CITRATE ORAL Take by mouth. Ac tive fluticasone propionate (FLONASE) 50 mcg/actuation nasal spray Apply 2 sprays into each nostril once daily 01/26/20 Active cetirizine (ZyrTEC) 10 mg tablet Take 1 tablet (10 mg total) by mouth 1 (one) time each day. 01/26/20 Active levonorgestreL (MIRENA) 21 mcg/24hr (up to 8 yrs) 52 mg IUD 1 Each by Intrauterine route once. Active multivit,calc, mins/iron/foli c (WOMEN'S ONE DAILY ORAL) 1 Tab daily. Activ e SUMAtriptan (IMITREX) 50 mg tablet TAKE ONE TABLET BY MOUTH AT ONSET OF MIGRAINE. IF SYMPTOMS PERSIST, A SECOND DOSE MAY BE TAKEN IN 2 HOURS. DO NOT EXCEED 2 DOSES IN A 24 HOUR PERIOD, UNLESS OTHERWISE INSTRUCTED BY YOUR PHYSICIAN 01/13/20 24 Active albuterol HFA (PROAIR HFA ; PROVENTIL HFA ; VENTOLIN HFA) 90 mcg/actuation inhaler Inhale 2 puffs by mouth every 6 (six) hours if needed for wheezing or shortness of breath. 1 each 08/12/19 25 026 Active inhalational spacing device (Aerochamber MV) inhaler Use as instructed 1 each 08/12/19 25 026 Active fluticasone propion-salmet Viktor (Advair HFA) 230-21 mcg/actuation inhaler Inhale 2 puffs by mouth 2 (two) times a day. Rinse mouth with water after use to reduce aftertaste and incidence of candidiasis. Do not swallow. 1 each 08/22/19 25 026 Active montelukast (SINGULAIR) 10 mg tablet TAKE 1 TABLET BY MOUTH AT BEDTIME 90 tablet 01/29/20 25 Active montelukast (SINGULAIR) 10 mg tablet Take 1 tablet (10 mg total) by mouth at bedtime. 90 each 1 08/05/19 25 025 Discontinued Active Problems Problem Noted Date Diagnosed Date Axillary mass, right 03/31/2024 Accessory breast tissue of axilla 02/14/2024 Dense breasts 02/14/2024 Neuropathy 09/06/2023 Asthma 12/17/2006 Encounters Date Type Department Care Team Description 11/13/2024 2:30 PM EDT Office Visit Pulmonology - [address] [place] [address] Virginie Brown MD Moderate persistent asthma, unspecified whether complicated (Primary Dx) from Last 3 Months Immunizations Immunization Administration [...] History Surgery Date Site/Laterality Comments BREAST LUMPECTOMY 2015 Left PROCEDURE: HISTORICAL BREAST LUMPECTOMY; COMMENT: benign [...] for your loved ones. For example, child day care center worker or elderly care for an older adult? [...] Care Team (Late st Contact Info) Description 05/17/2025 4:15 PM EST Office Visit Pulmonology - [place] [address] [facility] [address] [place] [address] Virginie Brown MD [address] [place] [phone] 09/21/2025 4:00 PM EDT Office Visit Adult Medicine [address] [phone] Radha Kebede MD [address] [place] [phone] Health Maintenance Due Date Last Done Comments Hepatitis B Vaccines (1 of 3 - 19+ 3-dose series) 2000 Cervical Cancer Screening: P ap Smear 2002 HPV Vaccines (1 - 3-dose SCD M series) 2008 Pneumococcal Vaccine: Pediatrics (0 to 5 Years) and At-Risk Patients (6 to 49 Years) (2 of 2 - PCV) 01/24/2017 01/25/2016 Hepatitis C Screening 03/13/2022 COVID-19 Vaccine (1 - 2023-2 5 season) 2024 Influenza Vaccine (#1) 2024 [...] Procedure Name Priority Date/Time Associated Diagnosis Comments MG MAMMO DIGITAL DIAGNOSTIC W [place] RIGHT Routine 10/19/2024 8:35 AM EDT Abnormal mammogram of right breast DEPRESSION SCREENING Routine 02/10/2024 HIV SCREENING Routine 01/16/2007 from Last 3 Months or Most Recently Relevant to Health Maintenance Results * MG Mammo Digital Diagnostic w [place] [...] Signed Date: 10/19/2024 08:49 ET Workstation ID: [id number] Transcribed By: Self Edit Transcribed Date: 10/19/2024 [...] Signed Date: 10/19/2024 08:49 ET Workstation ID: [id number] Transcribed By: Self Edit Transcribed Date: 10/19/2024 08:43 ET us Adrianne CRUZ IMG BI PROCEDURES Final Result * Depression Screening (02/10/2024) Depression Screening abstracted us Historical Provider HEALTH MAINTENANCE Final Result * HIV Screening (01/16/2007) HIV Screening abstracted us Historical Provider HEALTH MAINTENANCE Final Result from Last 3 Months or Most Recently Relevant to Health Maintenance Insurance [facility] Care Teams Junior Copywriter Relationship Specialty Start Date End Date Radha Kebede MD [address] [place] [phone] PCP - General Internal Medicine 07/22/24
== END 2025-02-09 12:48 | disposition home or self-care (01) ==
LOC: HO.HWS 11:46
PROVIDERS: PCP Internal Medicine; Visit Provider Obstetrics & Gynecology
DX: N93.9 Abnormal uterine and vaginal bleeding, unspecified (principal)
CPT/HCPCS: 58100

== ENCOUNTER 2025-02-09 11:45 | Outpatient (REF) | payer OTHER, SELFPAY | END 2025-02-09 11:46 | disposition home or self-care (01) | LOC: HO.LNP 11:45 | PROVIDERS: PCP Internal Medicine; Visit Provider Obstetrics & Gynecology | DX: N93.9 Abnormal uterine and vaginal bleeding, unspecified (principal); Z32.02 Encounter for pregnancy test, result negative | CPT/HCPCS: 58100; 81025; 88305 ==

== ENCOUNTER 2025-02-12 13:51 | Outpatient (REF) | payer OTHER, SELFPAY ==
--- NOTE | ~2025-02-12 | US_ITS ---
EXAMINATION: US PELVIS CLINICAL INFORMATION: Abnormal uterine bleeding COMPARISON: None available. TECHNIQUE: Ultrasound of the pelvis is performed using both transabdominal and transvaginal transducers along with Doppler. Transvaginal imaging is performed due to inadequate visualization transabdominally. FINDINGS: Uterus: The uterus is anteverted and measures 10 x 3.4 x 5.4 cm. IUD in the uterus in satisfactory position. The double wall endometrial thickness is normal measuring 2 mm. No endometrial fluid or mass. The uterus is smooth in contour and has normal myometrial echogenicity. No visible fibroid. Small ovarian cyst in the cervix. Adnexa: Both ovaries are visualized. There is normal color flow to the adnexa. There is no ovarian torsion. There is no pelvic ascites or fluid collection. Right ovary measures 2.9 x 3.2 x 2.5 cm. Normal. 1.9 x 1.5 x 1.7 cm simple cyst or dominant follicle. Left ovary measures 3.7 x 2.5 x 2.8 cm. 3.3 x 1.9 x 2.4 cm cyst with single thin septation. US/US pelvic and transvaginal IMPRESSION: IUD in the uterus in satisfactory position. The endometrium does not appear thickened. 3.3 x 2.4 cm left ovarian cyst with single thin septation. Normal right ovary. Electronically signed by: Krystina Torres MD 02/12/2025 03:03 PM EDT
--- OUTSIDE RECORDS SUMMARY | 2025-02-12 14:45 | XMS_ITS | Clinical Summary ---
Author Organization [facility] Address [address] [place] [address] Care Team Providers Care [employer] Special Education Teacher Name Role Phone Kayley Webster MD Primary Care Provider [phone] Allergies No known active allergies Medications Medication [...] age to complete this topic Care Teams [employer] Special [employer] Teacher Relationship Specialty Start Date End Date Kayley Webster MD PCP - General Internal Medicine 02/05/20
--- OUTSIDE RECORDS SUMMARY | 2025-02-12 14:45 | XMS_ITS | Clinical Summary ---
Author Organization [facility] [address] [place] [address] [place] [phone] Phone Care Team Providers Care Control Electrician Name Role Phone Radha Kebede MD Primary Care Provider [phone] Allergies Active Allergy Reactions Criticality Noted Date [...] 2:30 PM EDT Office Visit Pulmonology - [address] [place] [address] Virginie Brown MD Moderate persistent [...] for your loved ones. For example, child and youth program assistant or elderly care for an older adult? [...] Care Team (Late st Contact Info) Description 04/19/2025 4:00 PM EST Appointment Radiology Department [address] [phone] 05/17/2025 4:15 PM EST Office Visit Pulmonology - [address] [place] [phone] Virginie Brown MD [address] [place] [phone] 09/21/2025 4:00 PM EDT Office Visit Adult Medicine [address] [phone] Radha Kebede MD [address] [place] [phone] Health Maintenance Due Date Last Done Comments Hepatitis B Vaccines (1 of 3 - 19+ 3-dose series) 2000 Cervical Cancer Screening: P ap Smear 2002 HPV Vaccines (1 - 3-dose SCD M series) 2008 Pneumococcal Vaccine: Pediatrics (0 to 5 Years) and At-Risk Patients (6 to 49 Years) (2 of 2 - PCV) 01/24/2017 01/25/2016 Hepatitis C Screening 03/13/2022 COVID-19 Vaccine ( - 2023-2 5 season) 2024 Influenza Vaccine [...] Signed Date: 10/19/2024 08:49 ET Workstation ID: [id number] Transcribed By: Self Edit Transcribed Date: 10/19/2024 [...] Signed Date: 10/19/2024 08:49 ET Workstation ID: [id number] Transcribed By: Self Edit Transcribed Date: 10/19/2024 08:43 ET Adrianne CRUZ IMG BI PROCEDURES Final Result * Depression Screening (02/10/2024) Depression Screening abstracted us Historical Provider HEALTH MAINTENANCE Final Result * HIV Screening (01/16/2007) HIV Screening abstracted us Historical Provider HEALTH MAINTENANCE Final Result from Last 3 Months or Most Recently Relevant to Health Maintenance Insurance [facility] Care Teams Control Electrician Relationship Specialty Start Date End Date Radha Kebede MD [address] [place], [place] PCP - General Internal Medicine 07/22/24
== END 2025-02-12 13:52 | disposition home or self-care (01) ==
LOC: HO.US 13:51
PROVIDERS: PCP Internal Medicine; Visit Provider Obstetrics & Gynecology
DX: N93.9 Abnormal uterine and vaginal bleeding, unspecified (principal)
CPT/HCPCS: 76830; 76856

== ENCOUNTER → 2025-02-12 13:52 | Outpatient (BNV) | payer OTHER, SELFPAY | PROVIDERS: PCP Internal Medicine; Visit Provider Radiology Diagnostic Radiology | DX: N93.9 Abnormal uterine and vaginal bleeding, unspecified (principal) | CPT/HCPCS: 76830; 76856 ==

== ENCOUNTER 2025-02-15 14:03 | Outpatient (AMB) | payer OTHER, SELFPAY ==
--- NOTE | 2025-02-15 14:03 | A.OFFVIS_ITS ---
Intake Visit Reasons: aub fu Allergies budesonide (From Pulmicort) Allergy (Mild, Verified 02/09/25 12:29) RASH HPI Comments Details: The patient scheduled a telehealth visit for follow-up to discuss the results of her abnormal uterine bleeding workup and options of treatment. The following workup was done.: H&H= 13/39.3 TSH, hCG, GC and chlamydia were negative. Endometrial biopsy pathology showed no evidence of hyperplasia and/or malignancy. Co testing was done was negative. Last mammogram at [facility] was BI-RADS 3, the patient has been on Q six-months mammogram for the last 18 months with stable findings, according to the patient, no records available Pelvic ultrasound showed the following: Uterus: The uterus is anteverted and measures 10 x 3.4 x 5.4 cm. IUD in the uterus in satisfactory position. The double wall endometrial thickness is normal measuring 2 mm. No endometrial fluid or mass. The uterus is smooth in contour and has normal myometrial echogenicity. No visible fibroid. Small ovarian cyst in the cervix. Adnexa: Both ovaries are visualized. There is normal color flow to the adnexa. There is no ovarian torsion. There is no pelvic ascites or fluid collection. Right ovary measures 2.9 x 3.2 x 2.5 cm. Normal. 1.9 x 1.5 x 1.7 cm simple cyst or dominant follicle. Left ovary measures 3.7 x 2.5 x 2.8 cm. 3.3 x 1.9 x 2.4 cm cyst with single thin septation. US/US pelvic and transvaginal IMPRESSION: IUD in the uterus in satisfactory position. The endometrium does not appear thickened. 3.3 x 2.4 cm left ovarian cyst with single thin septation. Normal right ovary. [facility] Surgical History H/O breast biopsy Family History Paternal Aunt History of breast cancer Social History Alcohol intake: never Female Reproductive History Menstrual Age of Menarche: 18 Review of Systems Const All systems reviewed & are unremarkable except as noted in HPI and below Reports as per HPI and Reports no additional complaints GI Reports no additional complaints Reports no additional complaints Telehealth Telehealth Telehealth Platform: [employer] Location of provider rendering services: practice address Location of patient: address on file Patient Identification confirmed using: Name, : Yes Telehealth method: video Patient verbally consented to treatment: Yes Patient verbally consented to billing insurance company: Yes Patient informed of any privacy concerns related to visit: Yes Minutes spent on Phone/Video with Pt.: 6 Assessment & Plan Assessment & Plan (1) Abnormal uterine bleeding (AUB): Comment: Mirena IUD BI-RADS 3 mammogram at [facility] no records available Code(s): N93.9 - Abnormal uterine and vaginal bleeding, unspecified Category: Medical Plan: Discussed with the patient the results of the work up done and options of treatment including Lysteda, BCP's, Mirena IUD, endometrial ablation and hysterectomy. All pros, cons, risks and benefits if each option was discussed with the patient and the patient decided to think about it and get back to us. In addition discussed with the patient the increase in the association of long- term use of Mirena IUD with breast cancer risk especially that the patient has been having mammogram with BI-RADS 3. Options of speed discussed with the patient is to use different method non hormonal of DUB treatment versus expectant management. All pros and cons, risks and benefits of each were discussed with the patient, the patient decided to proceed with expectant management waiting for next mammogram results. Instructions given the patient to call if mammogram result is abnormal risks stating biopsy were proceed with IUD removal. All questions answered, the patient verbalized understanding (2) Complex ovarian cyst: Code(s): N83.299 - Other ovarian cyst, unspecified side Category: Medical Plan: Discussed with the patient the complex ovarian cyst by ultrasound. Discussed with the patient the Ultrasound findings, the main limitation of transvaginal ultrasonography alone as a diagnostic tool to distinguish benign from malignant masses relates to its lack of specificity and low positive predictive value for cancer. The differential diagnosis discussed with the patient includes the following but not limited to: benign and malignant gynecological and non-gynecological causes. Laboratory evaluation include UPT and GC/CT , serum tumor marker CA 125 . Discussed with the patient that CA 125 is a protein associated with epithelial ovarian malignancies, but also frequently expressed at lower levels by nonmalignant tissue. Elevation of CA 125 levels may occur in nonmalignant gynecologic conditions, and in non-gynecologic cancers, It is most useful in postmenopausal women and in identifying non mucinous epithelial cancer. The CA 125 level is elevated in 80% of patients with epithelial ovarian cancer but in only 50% of patients with stage I disease. The overall sensitivity of CA 125 testing in distinguishing benign from malignant adnexal masses reportedly ranges from 61% to 90%; discussed with the patient the specificity, positive predictive value and negative predictive value. Discussed with the patient options of treatment , in case CA 125 is not elevated, including laparoscopy ovarian cystectomy/oophorectomy vs. expectant management with repeat US in repeating pelvic US in 6 weeks from previous US. If the ovarian complex cyst is persistent larger and / or more complex looking, or higher CA 125 will refer to gynecologic Oncology. All pros, cons, risks and benefits of each approach were discussed with the patient including but not limited to a delay in the diagnosis and treatment of ovarian cancer affecting the prognosis; The patient decided to go ahead with expectant management. Instructions given the patient to schedule a 6 weeks follow-up ultrasound appointment. All questions were answered & the patient verbalized understanding and agreed with the plan. I spent a total of 20 minutes reviewing the chart, talking to the patient via video and documenting in the medical record. Orders: Orders US pelvic and transvaginal 6 Weeks N83.299 - Other ovarian cyst, unspecified side Coding Level of Care Code Tele Est Pt Level 3 (15590) Diagnoses Abnormal uterine bleeding (AUB) N93.9 Complex ovarian cyst N83.299
== END 2025-02-15 14:49 | disposition home or self-care (01) ==
PROVIDERS: PCP Internal Medicine; Visit Provider Obstetrics & Gynecology
DX: N93.9 Abnormal uterine and vaginal bleeding, unspecified (principal); N83.299 Other ovarian cyst, unspecified side
CPT/HCPCS: 99213

== ENCOUNTER 2025-03-16 15:57 | Outpatient (AMB) | payer OTHER, SELFPAY ==
--- NOTE | 2025-03-16 15:59 | A.OFFVIS_ITS ---
Intake Visit Reasons: 7M Allergies budesonide (From Pulmicort) Allergy (Mild, Verified 03/16/25 16:03) RASH Medication List - Last Reconciled 03/16/25 by Elidia Omer CNP albuterol sulfate 90 mcg/actuation 2 puffs inhalation Q6H PRN cetirizine (Zyrtec) 10 mg PO DAILY PRN citalopram 20 mg PO DAILY fluticasone propion-salmeterol 230-21 mcg/actuation (Advair HFA) 2 puffs inh alation BID fluticasone propionate 50 mcg/actuation 1 spray intranasal BID gabapentin 300 mg PO DAILY levonorgestrel vaginal ONCE montelukast 10 mg PO BEDTIME naproxen 500 mg PO Q12H PRN sumatriptan succinate 50 mg PO topiramate 50 mg PO DAILY HPI Comments Details: She was doing okay. Migraines are under control with topiramate and has not had to use sumatriptan. Few episodes of facial tingling on and off that can last for few days, last episode was about 2 weeks ago. Episodes seem to be triggered by stress. Under some stress as parents recently moved to senior housing and in process of cleaning out house and getting ready to sell. Mood was okay with citalopram. Numbness and tingling to L foot was unchanged. No falls. No significant neck or shoulder pain. Uses naproxen as needed which helps. She was found to have cyst on left ovary and has follow up ultrasound in few weeks. Stopped all medications in 07/2024 due to GI symptoms and did not restart amitriptyline. Did not have any numbness, tingling, or cold sensation to face without amitriptyline from 07/2024-09/2024. Previously, left side of face felt cold at times, along left cheek and jaw, w orse when standing, like when doing dishes. Had some tingling to left side of face and few headaches which seemed to be triggered by stress. L foot aches, not as painful and does not feel as cold. L shoulder tense at times, naproxen helps and was also seeing chiropractor. Unable to get BLE u/s, not covered by insurance. In 07/2023, she had gradual onset of numbness/tingling and cold sensation to entire left side after stressful week of her mother not doing well, daughter being sick, and tree falling on car. She went to [facility] with no acute findings and symptoms resolved completed. About 1 week later, she had onset of numbness/tingling and cold sensation to left side again while in the hospital for daughter's surgery and symptoms completely resolved. Tried PT which caused pain to entire left side. Achy-type pain to L side of neck into shoulder and down L arm. Intermittent numbness/tingling beginning at L wrist going into last two fingers. L foot pain up to knee, most pain in L foot, describes as cold pain. Top of R foot feels colder at times. Intermittent numbness/tingling to L foot that varies in severity. No specific triggers, however notices symptoms more when sitting. No falls. No recent accidents/injuries or heavy lifting. Most of the left leg numbness is now around the left ankle and left side of foot, occasionally on bottom of foot. Normal NCV/ EMG and brain MRI in 2022. She has had intermittent tingling in the left thigh that started in October of 2021 and now involves the entire left lower extremity to the outer border of her foot, off and on on a daily basis, worse as the day progresses. She feels some heaviness in the legs but no weakness. There is no loss of sensation but it tingling sensation like it's about fall asleep. Since March she's also started having similar sensations, though milder, in the fourth and fifth fingers of the left hand. Sees chiropractor every 2 weeks, which helps shoulder/neck for a few days. No history of neck injuries. [facility] Medical History (Updated 03/16/25 @ 16:01 by Elidia Omer CNP) Lumbar radiculopathy Surgical History H/O breast biopsy Family History Paternal Aunt History of breast cancer Social History Alcohol intake: never Female Reproductive History Menstrual Age of Menarche: 18 Review of Systems Const Denies chills, Denies daytime sleepiness, Denies difficulty sleeping, Reports fatigue, Denies fever(s), Denies frequent falls, Reports headache(s), Denies increased appetite, Denies poor appetite, Denies snoring, Denies weakness, Denies weight gain and Denies weight loss Eyes Denies loss of vision ENT Denies vertigo, Denies dizziness, Reports headache(s) and Denies neck pain Card Denies chest pain at rest, Denies chest pain with activity, Denies syncope, Denies leg edema, Denies palpitations, Denies dyspnea and Denies dyspnea on exertion Resp Denies cough, Denies dyspnea, Denies dyspnea on exertion and Denies snoring GI Denies abdominal pain, Denies constipation, Denies heartburn, Denies diarrhea and Denies nausea Denies urinary frequency, Denies urinary incontinence and Denies urinary urgency Musc Denies abnormal gait, Denies back pain, Denies myalgias, Denies arthralgias, Denies neck pain, Denies numbness and Denies tingling Neuro Denies abnormal gait, Denies vertigo, Denies dizziness, Denies syncope, Denies frequent falls, Reports headache(s), Denies lack of coordination, Denies loss of vision, Denies memory loss, Denies numbness, Denies Other visual disturbances, Denies restless legs, Denies seizure-like activity, Denies tingling, Denies paresthesias, Denies tremor(s) and Denies weakness Psych Reports anxiety, Denies depression, Denies auditory hallucinations, Denies memory loss and Denies visual hallucinations Endo Reports fatigue and Denies palpitations Physical Exam Const Other: General Appearance:? normal, in no acute distress. Heart:? S1, S2 normal, no murmurs. Lungs:? clear anteriorly and posteriorly. Musculoskeletal:? normal. Extremities:? no edema. Psych:? alert, oriented, cognitive function intact, cooperative with exam. Neuro Other: Abnormal Neurological Findings:?none.? Mental Status: alert and oriented X 3. Normal attention, orientation, memory, and affect. Cranial Nerves: Pupils are equal, round, and reactive to light. External ocular muscles are intact. Visual dean are full, no ptosis. Face is symmetrical, no facial weakness or droop. Facial sensations are normal. Tongue protrudes in midline. Palate elevates symmetrically. Shoulder shrugging is normal Motor Examination: Normal muscle tone, bulk and strength. No atrophy or f asciculations. No drift of the extended upper extremities. DTR 2+. Plantars are flexor. Sensory Exam: Normal light touch, temperature, pinprick, vibration, and joint-position sensations. Rhomberg sign is absent. Coordination: No ataxia. No titubation. Gait Exam: Within normal limits. Cerebellar Signs: [id number]-ty-[id number] is okay. Extrapyramidal System: No tremor, rigidity with normal facial expressions. No bradykinesia. No bradyphrenia. Normal arm swing and posture. No propulsion or retropulsion. Speech: Normal. Results Reviewed Results Reviewed: 07/02/23 NCV/EMG ALL Normal motor and sensory nerve conduction velocities in the upper and lower extremities. Normal EMG of the left C5-T1 and left L4-S1 innervated muscle. . 06/07/22 NCV/EMG ALL Normal motor and sensory nerve conduction velocities in the upper and lower extremities. Normal EMG in the left C5-T1 and left L4-S1 innervated muscles. 06/08/22 MRI brain: Paranasal sinus disease with near total opacification of the right frontal sinus and moderate disease within the anterior ethmoid air cells. Otherwise normal brain MRI. No evidence of demyelinating disease. 08/18/22 MRI LS spine normal. Assessment & Plan Assessment & Plan (1) Migraine: Code(s): G43.909 - Migraine, unspecified, not intractable, without status migrainosus Category: Medical Qualifiers: Migraine type: unspecified Status migrainosus presence: without status migrainosus Intractability: not intractable Qualified Code(s): G43.909 - Migraine, unspecified, not intractable, without status migrainosus Plan: Continue topiramate 50mg 1 tablet at bedtime. Continue sumatriptan 50mg 1 tablet as needed for migraine. Continue ondansetron 4mg 1 tablet as needed for nausea/vomiting #10 for 30 days. Discussed option to restart amitriptyline 10mg at bedtime, declining at this time. Follow up in 6 months or sooner as needed. (2) Lumbar radiculopathy: Code(s): M54.16 - Radiculopathy, lumbar region Category: Medical Plan: Continue gabapentin 300mg 1 capsule at bedtime. (3) Cervical radiculopathy: Code(s): M54.12 - Radiculopathy, cervical region Category: Medical Plan: Continue naproxen 500mg 1 tablet as needed q12h with food or milk for pain #60 for 30 days. (4) Anxiety: Code(s): F41.9 - Anxiety disorder, unspecified Category: Medical Plan: Continue citalopram 20mg 1 tablet daily. Stress management strategies reviewed. Plan Meds tried: amitriptyline Medications: New topiramate 50 mg PO BEDTIME 90 tabs 1RF 90 days Changed From citalopram 20 mg PO DAILY To citalopram 20 mg PO DAILY 90 tabs 1RF 90 days From gabapentin 300 mg PO DAILY To gabapentin 300 mg PO BEDTIME 90 caps 1RF 90 days Coding Level of Care Code Est Pt Level 4 (68321) Diagnoses Migraine without status migrainosus, not intractable, unspecified migraine type G43.909 Migraine type: unspecified Status migrainosus presence: without status migrainosus Intractability: not intractable Lumbar radiculopathy M54.16 Cervical radiculopathy M54.12 Anxiety F41.9
--- OUTSIDE RECORDS SUMMARY | 2025-03-16 17:14 | XMS_ITS | Clinical Summary ---
Author Organization [facility] [address] [place] [address] [place] [phone] Phone Care Team Providers Care Campaign Worker Name Role Phone Radha Kebede MD Primary Care Provider [phone] Allergies Active Allergy Reactions Criticality Noted Date [...] OTHERWISE INSTRUCTED BY YOUR PHYSICIAN 4 Active albuterol HFA (PROAIR HFA ; PROVENTIL HFA ; VENTOLIN HFA) 90 mcg/actuation inhaler Inhale 2 puffs by mouth every 6 (six) hours if needed for wheezing or shortness of breath. 1 each 5 08/12/19 26 Active inhalational spacing device (Aerochamber MV) inhaler Use as instructed 1 each 5 08/12/19 26 Active fluticasone propion-salmete roL (Advair HFA) 230-21 mcg/actuation inhaler Inhale 2 puffs by mouth 2 (two) times a day. Rinse mouth with water after use to reduce aftertaste and incidence of candidiasis. Do not swallow. 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 Never 07/21/2024 Food Risk [...] your loved ones. For example, child care supervisor or elderly care for an older adult? [...] 04/19/2025 4:00 PM EST Appointment Radiology Department - [place] [address] [place] [address] 05/25/2025 4:15 PM EST Office Visit Pulmonology - [address] [place] [address] Virginie Brown MD [address] [place] [phone] 09/21/2025 4:00 PM EDT Office Visit Adult Medicine [facility] [address] [place] [address] Radha Kebede MD [address] [place] [phone] Health Maintenance Due Date Last Done Comments Hepatitis B Vaccines (1 of 3 - 19+ 3-dose series) 2000 Cervical Cancer Screening: P ap Smear 2002 HPV Vaccines (1 - 3-dose SCD M series) 2008 Pneumococcal Vaccine: Pediatrics (0 to 5 Years) and At-Risk Patients (6 to 49 Years) (2 of 2 - PCV) 01/24/2017 01/25/2016 Hepatitis C Screening 03/13/2022 COVID-19 Vaccine (1 - 2024-2 6 season) 2024 Influenza Vaccine (#1) 2024 9, [...] Procedure Name Priority Date/Time Associated Diagnosis Comments EXTERNAL ULTRASOUND REPORT 02/12/2025 EXTERNAL ULTRASOUND REPORT 02/12/2025 MG MAMMO DIGITAL DIAGNOSTIC W [place] RIGHT Routine 10/19/2024 8:35 AM EDT Abnormal mammogram of right breast DEPRESSION SCREENING Routine 02/10/2024 HIV SCREENING Routine 01/16/2007 from Last 3 Months or Most Recently Relevant to Health Maintenance Results * External Ultrasound Report (02/12/2025) Only the most recent of2 resultswithin the time period is included. Anatomical Region Laterality Modality Ultrasound us Provider [facility] IMG US PROCEDURES Final Result * MG Mammo Digital Diagnostic [...] Signed Date: 10/19/2024 08:49 ET Workstation ID: [id number] Transcribed By: Self Edit Transcribed Date: 10/19/2024 [...] Signed Date: 10/19/2024 08:49 ET Workstation ID: [id number] Transcribed By: Self Edit Transcribed Date: 10/19/2024 08:43 ET Adrianne CRUZ IMG BI PROCEDURES Final Result * Depression Screening (02/10/2024) Depression Screening abstracted Historical Provider HEALTH MAINTENANCE Final Result * HIV Screening (01/16/2007) HIV Screening abstracted us Historical Provider HEALTH MAINTENANCE Final Result from Last 3 Months or Most Recently Relevant to Health Maintenance Insurance [facility] [employer] Care Teams Campaign Worker Relationship Specialty Start Date End Date Radha Kebede MD [address] [place] [phone] PCP - General Internal Medicine 07/22/24
--- OUTSIDE RECORDS SUMMARY | 2025-03-16 17:14 | XMS_ITS | Clinical Summary ---
Author Organization [facility] Address [address] [place] [address] Care Team Providers Care Branch General Manager Name Role Phone Kayley Webster MD Primary Care Provider [phone] Allergies No known active allergies Medications Medication [...] age to complete this topic Care Teams Branch General Manager Relationship Specialty Start Date End Date Kayley Webster MD PCP - General Internal Medicine 02/05/20
== END 2025-03-16 16:13 | disposition home or self-care (01) ==
LOC: HO.HSM 15:58
PROVIDERS: PCP Internal Medicine; Referring Provider Internal Medicine; Visit Provider Registered Nurse
DX: G43.909 Migraine, unspecified, not intractable, without status migrainosus (principal); M54.16 Radiculopathy, lumbar region; M54.12 Radiculopathy, cervical region; F41.9 Anxiety disorder, unspecified
CPT/HCPCS: 99214

== ENCOUNTER → 2025-03-16 15:57 | Outpatient (BNVA) | payer OTHER, SELFPAY | PROVIDERS: PCP Internal Medicine; Referring Provider Internal Medicine; Visit Provider Registered Nurse | DX: G43.909 Migraine, unspecified, not intractable, without status migrainosus (principal); M54.16 Radiculopathy, lumbar region; M54.12 Radiculopathy, cervical region; F41.9 Anxiety disorder, unspecified; Z79.899 Other long term (current) drug therapy | CPT/HCPCS: 99212 ==

== ENCOUNTER 2025-03-29 15:22 | Outpatient (REF) | payer OTHER, SELFPAY ==
--- NOTE | ~2025-03-29 | US_ITS ---
EXAMINATION: US PELVIS CLINICAL INFORMATION: N83.299 - Other ovarian cyst, unspecified side COMPARISON: 02/12/2025 TECHNIQUE: Ultrasound of the pelvis is performed using both transabdominal and transvaginal transducers along with Doppler. Transvaginal imaging is performed due to inadequate visualization transabdominally. FINDINGS: Uterus: The uterus is anteverted and measures 8.6 x 3.5 x 4.7 cm. The double wall endometrial thickness is 2 mm. IUD projects in the upper uterine canal. The uterus is smooth in contour and has normal myometrial echogenicity. No visible fibroid. Adnexa: Both ovaries are visualized. There is normal color flow to the adnexa. There is no ovarian torsion. There is no pelvic ascites or fluid collection. Right ovary measures 2.3 x 1.8 x 1.9 cm. Left ovary measures 2.0 x 1.6 x 2.4 cm. Punctate debris is present within the bladder. US/US pelvic and transvaginal IMPRESSION: Probably positioned IUD and ovaries are within normal limits. Minimal punctate debris is present within the bladder. Correlate for signs symptoms that could suggest UTI or hematuria. Electronically signed by: Slava Dc MD 03/29/2025 04:29 PM EST RP
--- OUTSIDE RECORDS SUMMARY | 2025-03-29 21:50 | XMS_ITS | Clinical Summary ---
Author Organization [facility] [address] [place] [address] [place] [phone] Phone Care Team Providers Care Skin Care Therapist Name Role Phone Radha Kebede MD Primary Care Provider [phone] Allergies Active Allergy Reactions Criticality Noted Date [...] for your loved ones. For example, child adolescent psychiatrist or elderly care for an older adult? [...] 4:00 PM EST Appointment Radiology Department - [place] [address] [place] [address] 05/25/2025 4:15 PM EST Office Visit Pulmonology - [address] [place] [address] Virginie Brown MD [address] [place] [phone] 09/21/2025 4:00 PM EDT Office Visit Adult Medicine [facility] [address] [place] [address] Radha Kebede MD [address] [place] [phone] Health Maintenance Due Date Last Done Comments [...] Signed Date: 10/19/2024 08:49 ET Workstation ID: [id number] Transcribed By: Self Edit Transcribed Date: 10/19/2024 [...] Signed Date: 10/19/2024 08:49 ET Workstation ID: [id number] Transcribed By: Self Edit Transcribed Date: 10/19/2024 08:43 ET Adrianne CRUZ IMG BI PROCEDURES Final Result * Depression Screening (02/10/2024) Depression Screening abstracted Historical Provider HEALTH MAINTENANCE Final Result * HIV Screening (01/16/2007) HIV Screening abstracted us Historical Provider HEALTH MAINTENANCE Final Result from Last 3 Months or Most Recently Relevant to Health Maintenance Insurance [facility] Care Teams Skin Care Therapist Relationship Specialty Start Date End Date Radha Kebede MD [address] [place] [phone] PCP - General Internal Medicine 07/22/24
--- OUTSIDE RECORDS SUMMARY | 2025-03-29 21:50 | XMS_ITS | Clinical Summary ---
Author Organization [facility] Prior to 09/12/[address] [place] [address] Care Team Providers Care Rf Microwave Engineer Name Role Phone Kayley Webster MD Primary Care Provider [phone] Allergies No known active allergies Medications Medication [...] age to complete this topic Care Teams Rf Microwave Engineer Relationship Specialty Start Date End Date Kayley Webster MD PCP - General Internal Medicine 02/05/20
== END 2025-03-29 15:23 | disposition home or self-care (01) ==
LOC: HO.US 15:22
PROVIDERS: PCP Internal Medicine; Visit Provider Obstetrics & Gynecology
DX: N83.299 Other ovarian cyst, unspecified side (principal)
CPT/HCPCS: 76830; 76856

== ENCOUNTER → 2025-03-29 15:24 | Outpatient (BNV) | payer OTHER, SELFPAY | PROVIDERS: PCP Internal Medicine; Visit Provider Radiology Diagnostic Radiology | DX: N93.9 Abnormal uterine and vaginal bleeding, unspecified (principal); R93.41 Abnormal radiologic findings on diagnostic imaging of renal pelvis, ureter, or bladder | CPT/HCPCS: 76830; 76856 ==

== ENCOUNTER 2025-03-30 07:48 | Outpatient (AMB) | payer OTHER, SELFPAY ==
--- OUTSIDE RECORDS SUMMARY | 2025-03-30 07:53 | XMS_ITS | Clinical Summary ---
Author Organization [facility] [address] [place] [address] [place] [phone] Phone Care Team Providers Care Restaurant Cashier Name Role Phone Radha Kebede MD Primary Care Provider [phone] Allergies Active Allergy Reactions Criticality Noted Date [...] for your loved ones. For example, child welfare director or elderly care for an older adult? [...] 4:00 PM EST Appointment Radiology Department - [place] [address] [place] [address] 05/25/2025 4:15 PM EST Office Visit Pulmonology - [address] [place] [address] Virginie Brown MD [address] [place] [phone] 09/21/2025 4:00 PM EDT Office Visit Adult Medicine [facility] [address] [place] [address] Radha Kebede MD [address] [place] [phone] Health Maintenance Due Date Last Done Comments [...] Signed Date: 10/19/2024 08:49 ET Workstation ID: [id number] Transcribed By: Self Edit Transcribed Date: 10/19/2024 [...] Signed Date: 10/19/2024 08:49 ET Workstation ID: [id number] Transcribed By: Self Edit Transcribed Date: 10/19/2024 08:43 ET Adrianne CRUZ IMG BI PROCEDURES Final Result * Depression Screening (02/10/2024) Depression Screening abstracted Historical Provider HEALTH MAINTENANCE Final Result * HIV Screening (01/16/2007) HIV Screening abstracted us Historical Provider HEALTH MAINTENANCE Final Result from Last 3 Months or Most Recently Relevant to Health Maintenance Insurance [facility] [employer] Care Teams Restaurant Cashier Relationship Specialty Start Date End Date Radha Kebede MD [address] [place] [phone] PCP - General Internal Medicine 07/22/24
--- OUTSIDE RECORDS SUMMARY | 2025-03-30 07:53 | XMS_ITS | Clinical Summary ---
Author Organization [facility] Prior to 09/12/[address] [place] [address] Care Team Providers Care Lithograph Press Feeder Name Role Phone Kayley Webster MD Primary [...] age to complete this topic Care Teams Lithograph Press Feeder Relationship Specialty Start Date End Date Kayley Webster MD PCP - General Internal Medicine 02/05/20
--- NOTE | 2025-03-30 08:14 | MHC.OFFVIS ---
Vital Signs 03/30/25 08:23 Height 5 ft 7 in Weight 130 lb BMI 20.4 BP 118/74 Intake Visit Reasons: AUB Sorter Packer Required: No Information Interpreted: non-clinical & clinical Historiographer: Historiographer Present (Shy RODRIGUEZ) Accompanied by: Self / Same As Patient Allergies budesonide (From Pulmicort) Allergy (Mild, Verified 03/30/25 08:15) RASH Is last menstrual period known: Yes HPI Comments Details: Presenting for ultrasound follow-up regarding complex ovarian cyst seen on ultrasound done in 02/06, 03/29/25 pelvic ultrasound done showed the following: IMPRESSION: Probably positioned IUD and ovaries are within normal limits. Minimal punctate debris is present within the bladder. Correlate for signs symptoms that could suggest UTI or hematuria. PFSH Medical History Lumbar radiculopathy Surgical History H/O breast biopsy Family History Paternal Aunt History of breast cancer Social History Alcohol intake: never Female Reproductive History Menstrual Age of Menarche: 18 Review of Systems Const All systems reviewed & are unremarkable except as noted in HPI and below Physical Exam Vital Signs: Last Vital Signs BP 118/74 03/30/25 08:23 BMI result Body Mass Index 20.4 General: Yes no CVA tenderness External Female Exam: normal external appearance and normal appearance of the urethra Speculum Exam - Vagina: normal appearance of the vagina, normal palpation, no lesions and no masses Speculum Exam - Cervix: normal appearance of the cervix, normal palpation, no lesions, no masses and nontender Bimanual exam- vagina & uterus: normal bimanual exam, normal palpation, uterine size normal, normal palpation, uterine shape normal, No Cervical tenderness present and non-tender Bimanual Exam- Adnexa, other: normal adnexae Back/Spine/Pelvis Back: no CVA tenderness Office Procedures IUD Insert/Removal Details Details: Counseling/Consent: After discussing with the patient the risks of the procedure including bleeding, infection, scar tissue formation, , possible injury to blood vessels or nerves, chronic arm pain, blood transfusion, and irregular unpredictable bleeding Alternative options were discussed with the patient including but not limited: Do nothing. The patient signed the consent and agreed with the plan; all questions answered. Urine test was done in the office and was negative Preop dx: Requesting IUD removal Op: IUD removal Post op dx: same EBL= 10 cc Procedure: The patient was put in the dorsal lithotomy position a speculum was inserted in the vagina the IUD thread identified. Using a Rosalia clamp the thread was grasped and the IUD pulled out with no complications. The patient tolerated the procedure well and was advised to use a different method for contraception. Discharge instructions: Instructions were given to the pt to call if temp>100.4, abdominal pain heavy vaginal bleeding, n/v occur. The patient verbalized understanding and all questions answered. This note was generated with a voice recognition program. Some errors may have been overlooked during the review of this note. Sometimes these errors may affect the content or meaning of a given sentence. 71823-ODL Removal Procedure code (CPT) selection complete Results AMB Test Urine AMB Test Urine Negative Last Edit by Shy Murcia CMA on 03/30/25 08:25 Results Reviewed Results Reviewed: Laboratory Last Values Tst Clinic Negative 03/30/25 08:22 Assessment & Plan Assessment & Plan (1) Complex ovarian cyst: Code(s): N83.299 - Other ovarian cyst, unspecified side Category: Medical Plan: Discussed with the patient ultrasound findings showing the previously identified complex cyst has resolved. The patient was instructed to call if symptoms recur. All questions were answered the patient verbalized understanding. (2) Abnormal uterine bleeding (AUB): Comment: Mirena IUD BI-RADS 3 mammogram at [place] no records available Code(s): N93.9 - Abnormal uterine and vaginal bleeding, unspecified Category: Medical Plan: Discussed with the patient the options of treatment and the workup done all negative, options include IUD removal with expectant management, or Mirena IUD reinsertion control pills, cyclic Provera, endometrial ablation or hysterectomy. All pros and cons, risks and benefits of each were discussed with the patient, the patient decided to proceed with Mirena IUD removal and expectant management and will call back in case AUB recurs. All questions answered, the patient verbalized understanding. Mirena IUD removal done, see procedure note (3) Abnormal ultrasound of bladder: Code(s): R93.41 - Abnormal radiologic findings on diagnostic imaging of renal pelvis, ureter, or bladder Category: Medical Plan: Urine dip done in the office was negative Discussed with the patient the finding on ultrasound, bladder debris , recommended to the patient to call her PCP for further manage Orders: Orders AMB HCG Urine Test Today Z32.02 - Encounter for test, result negative Coding Level of Care Code Est Pt Level 3 (79835) Procedure Only Diagnoses Complex ovarian cyst N83.299 Abnormal uterine bleeding (AUB) N93.9 Abnormal ultrasound of bladder R93.41 CPT Codes Details - CPT: 97623-VRK Removal ([id number])
[2025-03-30 08:23] VITALS: BP 118/74; BMI 20.4
== END 2025-03-30 09:00 | disposition home or self-care (01) ==
LOC: HO.HWS 07:48
PROVIDERS: PCP Internal Medicine; Visit Provider Obstetrics & Gynecology
DX: N83.299 Other ovarian cyst, unspecified side (principal); N93.9 Abnormal uterine and vaginal bleeding, unspecified; R93.41 Abnormal radiologic findings on diagnostic imaging of renal pelvis, ureter, or bladder; Z32.02 Encounter for pregnancy test, result negative
CPT/HCPCS: 58301; 99213

== ENCOUNTER → 2025-03-30 07:48 | Outpatient (BNVA) | payer OTHER, SELFPAY | PROVIDERS: PCP Internal Medicine; Visit Provider Obstetrics & Gynecology | DX: Z30.432 Encounter for removal of intrauterine contraceptive device (principal); Z32.02 Encounter for pregnancy test, result negative; N83.299 Other ovarian cyst, unspecified side; N93.9 Abnormal uterine and vaginal bleeding, unspecified; R93.41 Abnormal radiologic findings on diagnostic imaging of renal pelvis, ureter, or bladder | CPT/HCPCS: 58301; 81025; 99212 ==